=== PATIENT | male | born 1990 | race African-American/Black ===

== ENCOUNTER 2019-03-19 12:42 | Emergency (ER) | payer SELFPAY ==
[~2019-03-19] VITALS: Ht 177.8 cm; Wt 94.0 kg
[2019-03-19 12:54] VITALS: BP 128/74
== END 2019-03-19 14:38 | disposition left against medical advice (07) ==
LOC: ER 12:42
DX: M54.9 Dorsalgia, unspecified (principal); Z53.21 Procedure and treatment not carried out due to patient leaving prior to being seen by health care provider